=== PATIENT | female | born 1955 | race Caucasian/White ===

== ENCOUNTER → 2023-12-09 07:43 | Outpatient (REF) | payer MEDICARE, OTHER, SELFPAY | LOC: PAVMRI 07:43 | PROVIDERS: ATTENDING PHYSICIAN Internal Medicine; FAMILY PHYSICIAN Family Medicine Geriatric Medicine | DX: M15.4 Erosive (osteo)arthritis (principal); M19.90 Unspecified osteoarthritis, unspecified site; M79.641 Pain in right hand | CPT/HCPCS: 73220; A9575 ==